=== PATIENT | female | born 1950 | race Caucasian/White ===

== ENCOUNTER 2024-08-09 09:18 | Emergency (ER) | payer MEDICARE, SELFPAY ==
[2024-08-09 09:21] VITALS: BP 93/51; PULSE 78; RESP 16; TEMP 36.2; O2SAT 100
--- NOTE | 2024-08-09 09:31 | ED.VIS.GI ---
HPI HPI - GI History of Present Illness Chief Complaint: Abd Pain Informant: patient and family Narrative Narrative: 73-year-old female presenting to [facility] emergency department with a chief complaint of chronic abdominal cramping nausea and vomiting. Patient states symptoms have been present for years. She states that she has seen many doctors at many facilities. She states that none of her doctors will see her for her issues anymore. She lives in [facility]. The patient states that she heard that there was a team of GI doctors here at [facility] and needs a referral to see them. She states that she cannot take any medications by mouth. This includes dissolvable medicines because it exacerbates her cramping and causes her to urinate. She states that only shots work. She states that recently she was at [facility] for a rectal and bladder prolapse surgery. She states that the GI doctor that she had seen while in the hospital at [facility] was from [place] and that is too far for her to go. She states that she really needs an endoscopy. She states that prior endoscopy has showed a polyp which she does not know was cancerous or not. Family states that she needs a GI doctor to either confirm or refute what she believes she has but they are unable to tell me what that it is. PFSH PFSH Allergy/AdvReac Type Severity Reaction Status Date / Time No Known Allergies Allergy Verified 08/09/24 09:20 ROS ROS ED Constitutional Constitutional ED: Denies chills, fever(s) or weight loss Eyes Eyes: Denies change in vision or diplopia ENT ENT ED: Denies ear pain, rhinorrhea or sore throat Cardiovascular Cardiovascular: Denies chest pain, orthopnea, palpitations or racing heartbeat Respiratory/Chest Respiratory/Chest: Denies cough, dyspnea or orthopnea Gastrointestinal Gastrointestinal: Reports abdominal pain, nausea and vomiting; Denies diarrhea Genitourinary Genitourinary ED: Denies dysuria, hematuria or urinary frequency Musculoskeletal Musculoskeletal: Denies arthralgias or myalgias Integumentary Denies abscess or rash Neurologic Neurologic: Denies headache(s) or weakness Psychiatric Psychiatric: Denies anxiety, depression, suicidal ideation or suicidal thoughts Endocrine Endocrinology: Denies polydipsia, polyphagia or polyuria Allergic/Immunologic Allergic/Immunologic ED: Denies mouth swelling, tongue swelling or urticaria EXAM Physical Exam Const Vital Signs: 08/09/24 09:21 Temperature 97.2 F L Temperature Source Temporal Pulse Rate 78 Respiratory Rate 16 Blood Pressure 93/51 L Blood Pressure Mean 65 Pulse Ox 100 Oxygen Delivery Method Room Air Positive well nourished and well developed General Appearance ED: well developed and NAD HEENT Reports normocephalic, head/scalp atraumatic and moist mucous membranes Eyes PERRL and EOMs intact bilaterally Neck no lymphadenopathy, supple and no JVD Resp normal respiratory effort and clear to auscultation bilaterally Cardio regular rate, regular rhythm and no murmurs GI normal to inspection, nondistended, normoactive bowel sounds and non-tender Palpation: soft Back/Spine no CVA tenderness and normal ROM Extremity normal to inspection General Extremety ED: Negative for edema General Extremity: Negative for edema Neuro oriented x3 and CN's II-XII intact bilaterally Sensorium / Orientation: alert Motor Exam: strength 5/5 throughout Psych mental status grossly normal Mood & Affect: anxious; Negative for depressed or tearful Skin no rashes or lesions noted and no wounds MDM MDM MDM Narrative Medical decision making narrative: This is an extensive broad-based differential. Unfortunately I do not feel that we have any emergent condition here today. Everything that she has said has been going on for years but the cramping has progressively worsened. She does not appear acutely dehydrated. She only wants a shot and referral to GI. I do not suspect that we need to do an extensive ED evaluation here today as again I do not find anything acute. I will give her a dose of Bentyl intramuscular and refer to GI. I do wonder if there is mental health undertones in this case. History & Record Review Discussion w/independent historian: Patient and Family Discharge Plan Triage Chief Complaint: Abd Pain ED Provider: Igor Man Dx/Rx/DC Orders Clinical Impression: Chronic abdominal pain, Chronic vomiting Primary Care Provider: NOT,DEFINED Referrals: Eleuterio Clemons DO [Med Staff - Active Staff] - (for gastroenterology) NOT,DEFINED [Primary Care Provider] - Print Language: Ukrainian Disposition Disposition: Home, Self Care
[2024-08-09] MEDS: Dicyclomine 20 MG/2 ML Vial IM (09:53)
[2024-08-09 10:08] VITALS: BP 89/47
--- NOTE | 2024-08-09 10:15 | ED.RN ---
Patient denies any dizziness or weakness and is ambulating well. Dr. Man notified of BP
[2024-08-09 10:26] VITALS: BP 89/47; PULSE 78; RESP 16; TEMP 36.2; O2SAT 100
== END 2024-08-09 10:27 | disposition home or self-care (01) ==
PROVIDERS: Emergency Provider Emergency Medicine; Visit Provider Emergency Medicine
DX: R10.9 Unspecified abdominal pain (principal); G89.29 Other chronic pain; R11.2 Nausea with vomiting, unspecified
CPT/HCPCS: 96372; 99282